=== PATIENT | male | born 1955 | race Caucasian/White ===

== ENCOUNTER → 2019-07-07 | Day surgery (SDC) | payer BC ==
[~2019-07-07] MED LIST: FENTANYL CITRATE/PF 100MCG/2 ML INJ ONE; METOPROLOL SUCC25 MG PO; MIDAZOLAM HCL 2 MG/2 ML VIAL ONE; OR PHACO EYE KIT ONE; PREOP PHACO EYE KIT ONE
--- OUTSIDE RECORDS SUMMARY | 2019-07-07 11:48 | XMS REPORT | Continuity of Care Document ---
Author Author Lat49 Address Unknown Phone Unavailable Care Team Providers Care [employer] Applier Name Role Phone OpenDrive Unavailable Unavailable Problems Problem Status Onset Date Classification Date Reported Comments Source Simple obesity (disorder) Active Problem 11/12/2017 [facility] Medications Medication Details Route Status Patient Instructions Ordering Provider Order Date Source Codeine Phosphate 2 MG/ML / Guaifenesin 20 MG/ML Oral Solution [Cheratussin] 10 mL, PO, Q4H, X 3 day, # 180 mL, 0 Refill(s) Active 11/09/2017 [facility] Ventolin HFA 90 mcg/inh inhalation aerosol with adapter 2 puff, INHALER, Q4H, PRN wheezing, coughing, or shortness of breath, # 8 gm, 1 Refill(s), Pharmacy: [facility] [id number] Active 11/09/2017 [facility] doxycycline hyclate 100 MG Oral Tablet 100 mg=1 tab, PO, Q12H, X 10 day, # 20 tab, 0 Refill(s), Pharmacy: [facility] [id number] Active 11/09/2017 [facility] Osteo Bi-Flex 0 Refill(s) Active 11/09/2017 [facility] aspirin 81 mg tablet, enteric coated 81 mg=1 tab, PO, Daily, # 90 tab, 3 Refill(s) Active 11/09/2017 [facility] celecoxib 200 mg oral capsule 200 mg=1 cap, PO, BID, 0 Refill(s) Active 11/09/2017 [facility] metoprolol 25 mg oral tablet, extended release 25 mg=1 tab, PO, Daily, 0 Refill(s) Active 11/09/2017 [facility] Allergies, Adverse Reactions, Alerts No Known Medication Allergies Immunizations No Data Provided for This Section Results No Data Provided for This Section Pathology Reports No Data Provided for This Section Diagnostic Reports Report Value Date Source Chest 2 views DX Clinical Indication: - 5 day cough after flu Comparison: None FINDINGS: PA and lateral chest radiographs were obtained. MEDIASTINUM: The cardiac silhouette is normal in size. The aorta is unremarkable. LUNGS: Lung volumes are maintained. There are no focal infiltrates or effusions. There are no pneumothoraces noted. BONES: The visualized osseous structures are unremarkable. IMPRESSION: No acute infiltrates or effusions. SL: [id number] 11/09/2017 [facility] Consultation Notes No Data Provided for This Section Discharge Summaries No Data Provided for This Section History and Physicals No Data Provided for This Section Vital Signs Vital Sign Value Date Comments Source BMI Calculated 30.89 11/09/2017 [facility] Temperature Oral (F) 97.8 F 11/09/2017 [facility] Systolic (mm Hg) 124 11/09/2017 [facility] Diastolic (mm Hg) 86 11/09/2017 [facility] Heart Rate 64 11/09/2017 [facility] Height 180.34 cm 11/09/2017 [facility] Weight 100.455 11/09/2017 [facility] Encounters Location Location Details Encounter Type Encounter Number Reason For Visit Attending Provider ADM Date DC Date Status Source Outpatient [id number] [facility] 11/09/2017 Active [facility] Outpatient [id number] Jose Luis Ho Ho Kus 11/09/2017 11/10/2017 [facility] Procedures Procedure Code Date Perfomer Comments Source Tonsillectomy [id number] [facility] Assessment and Plan No Data Provided for This Section Plan of Care No Data Provided for This Section Social History Social History Date Source Social History TypeResponse Smoking Status Former smoker; Lives with someone who smokes; Cigarette Smoking Last 365 Days No; Reg Smoking Cessation Counseling No 11/09/2017 [facility] Family History No Data Provided for This Section Advance Directives No Data Provided for This Section Functional Status No Data Provided for This Section
--- OUTSIDE RECORDS SUMMARY | 2019-07-07 11:48 | XMS REPORT | Summary of Care ---
Author Author [facility] Organization [facility] Address Unknown Phone Unavailable Encounter KRISTINE Reddy(FIN) [id number] Date(s): 11/09/17 - 11/09/17 [facility] [address] [place] [phone] Discharge Disposition: Home or Self Care Attending Physician: Jose Luis Hansen MD Vital Signs Most recent to 1 oldest [Reference Range]: Height 180.34 cm (11/09/17 2:11 PM) Temperature Oral 97.8 DegF [96.4-99.1 DegF] (11/09/17 2:11 PM) Blood Pressure 124/86 mmHg [90-140/60-90 mmHg] (11/09/17 2:11 PM) Peripheral Pulse 64 bpm Rate [60-100 bpm] (11/09/17 2:11 PM) Weight 100.455 kg (11/09/17 2:11 PM) Body Mass Index 30.89 m2 (11/09/17 2:11 PM) Problem List Condition Effective Dates Status Health Status Informant Simple Active obesity(Confirmed) Allergies, Adverse Reactions, Alerts Substance Reaction Severity Status NKDA Active Medications aspirin 81 mg tablet, enteric coated 81 mg=1 tab, PO, Daily, # 90 tab, 3 Refill(s) Start Date: 11/09/17 Status: Ordered celecoxib 200 mg oral capsule 200 mg=1 cap, PO, BID, 0 Refill(s) Start Date: 11/09/17 Status: Ordered Cheratussin AC oral syrup 10 mL, PO, Q4H, X 3 day, # 180 mL, 0 Refill(s) Start Date: 11/09/17 Stop Date: 11/12/17 Status: Ordered doxycycline hyclate 100 mg oral tablet 100 mg=1 tab, PO, Q12H, X 10 day, # 20 tab, 0 Refill(s), Pharmacy: [facility] [id number] Start Date: 11/09/17 Stop Date: 11/19/17 Status: Ordered metoprolol 25 mg oral tablet, extended release 25 mg=1 tab, PO, Daily, 0 Refill(s) Start Date: 11/09/17 Status: Ordered Osteo Bi-Flex 0 Refill(s) Start Date: 11/09/17 Status: Ordered Ventolin HFA 90 mcg/inh inhalation aerosol with adapter 2 puff, INHALER, Q4H, PRN wheezing, coughing, or shortness of breath, # 8 gm, 1 Refill(s), Pharmacy: [facility] [id number] Start Date: 11/09/17 Status: Ordered Results No data available for this section Immunizations No data available for this section Procedures Procedure Date Related Diagnosis Body Site Tonsillectomy Social History Social History Type Response Smoking Status Former smoker; Lives with someone who smokes; Cigarette Smoking Last 365 Days No; Reg Smoking Cessation Counseling No Assessment and Plan No data available for this section
[2019-07-07 15:30] VITALS: BP 136/84
== END | disposition home or self-care (01) ==
LOC: OR 11:40
PROVIDERS: ATTEND Ophthalmology
DX: H25.11 Age-related nuclear cataract, right eye (principal); R00.2 Palpitations
CPT/HCPCS: 66984; J2250; J3010; V2632